=== PATIENT | male | born 1965 | race Caucasian/White ===

== ENCOUNTER 2017-10-03 22:14 | Emergency (ER) | payer BC ==
--- NOTE | 2017-10-03 22:24 | PDOC ---
History of Present Illness - General Chief Complaint: Pain, Acute Stated Complaint: FLU/BODY ACHES/FEVER Time Seen by Provider: 10/03/17 22:22 - History of Present Illness Initial Comments: 10/04/17 03:21 fever, body aches, cough x 1 day no rash no travel has taken NSAIDs without relief pmh: RAD fhx: noncontrib ros: reviewed and otherwise negative o/e NAD no diaphoresis no rash nonicetirc mmm op-clear no adenopahty cta no murmur abd ntnd no cvat n oedema a/p MARCELL nsaids tamiflu Past History - Past Medical History Allergies/Adverse Reactions: Allergies Allergy/AdvReac Type Severity Reaction Status Date / Time No Known Allergies Allergy Verified 10/03/17 22:16 Home Medications: Ambulatory Orders Beclomethasone Dipropionate [Qvar] 8.7 gm IH PRN 10/03/17 Oseltamivir Phosphate [Tamiflu] 75 mg PO BID #9 capsule 10/03/17 *DC/Admit/Observation/Transfer Diagnosis at time of Disposition: Influenza-like illness - Discharge Dispostion Disposition: HOME Condition at time of disposition: Stable - Prescriptions Prescriptions: Oseltamivir Phosphate [Tamiflu] 75 mg PO BID #9 capsule - Referrals - Patient Instructions Printed Discharge Instructions: Influenza - Post Discharge Activity
[2017-10-03 22:25] VITALS: BP 160/100; PULSE 100; TEMP 100; BMI 29.0
[2017-10-03] MEDS ORDERED: OSELTAMIVIR PHOSPHATE 75 MG CAPSULE PO ONE (22:25)
== END 2017-10-03 22:43 | disposition home or self-care (01) ==
LOC: FER 22:14
DX: J11.1 Influenza due to unidentified influenza virus with other respiratory manifestations (principal)
CPT/HCPCS: 99281-25